=== PATIENT | female | born 1955 | race African-American/Black ===

== ENCOUNTER → 2017-04-11 | Outpatient (CLI) | payer MEDICAID ==
--- NOTE | 2017-04-11 11:04 | NOWCEV ---
[facility] EVALUATION AND LETTER OF JUSTIFICATION Patient Name: JEANNETTE SHELDON Physician: Rukhsana Woodruff MD Eval Date: 04/11/17 Therapist: Nenita Sanders PT,MSPT Date of : 1955 MR#: [id number] Contact: Jeannette Sheldon Subscriber: JEANNETTE SHELDON Primary Ins: MEDICAID HEALTH FIRST REGULATORY COORDINATOR Subscriber #: [id number] EVALUATION FINDINGS Medical history - Jeannette is a 62y/o female with longstanding h/o COPD, balance disturbance, sleep apnea, as well as LBP and R knee pain. She is primarily housebound, as her ability to access the community is limited by her poor endurance as well as pain and balance deficits. She was referred to this clinic by her doctor to have recommendations made for the most appropriate power mobility device to provide Jeannette with safe and consistent access to the community. Functional Mobility - Jeannette is able to ambulate household distances independently, but her gait is very unsteady and is characterized by a significant R trendelenburg, narrow CARLY, no heel strike or push off, and flexed posture. Walking a 40' distance between rooms in the clinic Jeannette caught her toe multiple times and had several near falls. Following this short walk she was SOB and reported dizziness, requiring a seated rest prior to continuing with assessment. Jeannette has had falls within her home, most recently she reports catching her toes on the carpet. She completed the TUG in 20sec indicating an increased fall risk. Jeannette does not ambulate community distances. She is not able to negotiate unlevel/ community surfaces without a significant increased risk of fall. She does report intermittently using a sc, but does not use a walker because a 4-wheel walker is too difficult/dangerous for Jeannette to safely control due to her poor balance, and would place her at significant risk for fall. She does not have the strength or endurance to propel a front wheel walker at a community level. Jeannette can safely perform stand step transfers with UE support from chair. She can independently perform supine to/from sit transitions. Motor involvement - Jeannette is weaker on the R side than her L side. MMT is as follows: DF:4-/5 R, 4/5 L, knee extension: 4-/5 R, 4+/5 L, hip flexion: 3+/5 B, hip abduction: 2/5 R, 3/5 L, shoulder flexion and abduction: 4/5 B. She has significantly impaired balance reactions with small ineffective stepping reactions and minimal response at her hips and ankles in response to LOB or challenges. Posture - Jeannette sits with a relatively level pelvis and a lumbar lordosis. Skin Sensation - Jeannette has numbness and tingling in her toes on B feet, and mild diminished sensation on the plantar surfaces of her feet. She does not have any skin breakdown and is continent of bowel and bladder. Endurance - Jeannette has very poor endurance due to her COPD. She reports that she used to utilize supplemental O2 throughout the day, but she has since lost weight so only utilizes supplemental O2 at night. She is unable to ambulate any community distances due to significant SOB and pain in her back. She demonstrated SOB when ambulating 20-40' distances within the clinic requiring a seated break to recover between tasks. She reports that she can maximally ambulate ~100' on level surfaces, but requires about 5min seated to recover. ADLs - Jeannette is I with ADLs such as dressing, bathing, and basic meal prep within the home. Cognitive/Social - Jeannette lives alone in a single level apartment with a level entry. She utilizes public transportation to access medical appointments, as well as the grocery store which is half a mile from her home. She reports that she has been primarily home bound for the past 10 years, due to her poor endurance from her COPD, and limited ability to ambulate on variable terrain due to balance deficits and pain. Her goal is to be able to independently shop and attend appointments without exacerbating her COPD, pain, or placing herself at risk for fall. Current wheelchair - Jeannette does not own any power or manual wheelchairs or scooters. MEDICAL and FUNCTIONAL NEED/OBJECTIVES * To procure a power scooter to provide Jeannette with safe, consistent, and independent access to the community. EQUIPMENT RECOMMENDATIONS AND JUSTIFICATIONS The following recommendations are believed to be the most cost effective way to meet the patients medical and functional needs. * Easel Learn 4-wheel power scooter: Needed to provide Jeannette with safe and consistent access to the community without exacerbation of her COPD, pain, or placing her at risk for fall. Jeannette is not able to ambulate community distances , even with an AD such as a cane or walker due to her limited endurance from her COPD, as she becomes SOB and requires a seated break after ambulating 40'. Additionally she is not able to ambulate over unlevel/community surfaces even with a walker without placing herself at increased risk for fall, especially when carrying groceries. Jeannette cannot utilize a MWC, even a light or ultra light weight model, as self propulsion with her UEs would exacerbate her COPD and she would not be able to self propel community distances, even with UEs and LEs. Additionally, Jeannette does not have the strength / endurance to be able to self propel even an ultra light weight MWC over unlevel surfaces such as up/ down curb cuts, or ramps, nor would she be able to propel a MWC quickly enough to cross a street safely. A power scooter will provide Jeannette with the ability to independently grocery shop, attend medical appointments, and access the community without exacerbation of her COPD, increasing her pain, or placing her at risk for fall. A 4 wheel model is necessary as Jeannette will be using her scooter only for community mobility, this will provide her with greater ability to navigate unlevel terrain. Jeannette will be able to maintain her UEs on a tiller to safely drive her power scooter. Jeannette will be able to safely and independently transfer on/off a scooter platform. These recommendations are based on the likelihood that Jeannette will require the use of a power scooter for all community mobility for the rest of her life. She is able and has not expressed any unwillingness to use the equipment. If you have any questions or concerns regarding the stated recommendations, please feel free to contact the therapist at . Thank you for your cooperation in obtaining the necessary equipment for this patient. MANDY Johnson
== END ==
PROVIDERS: ATTEND Family Medicine
DX: R26.81 Unsteadiness on feet (principal); R27.8 Other lack of coordination
CPT/HCPCS: 97161-GP

== ENCOUNTER 2018-03-29 13:16 | Observation (INO) | payer MEDICAID ==
--- NOTE | 2018-03-29 13:28 | EDPHY ---
H & P Time Seen by Provider: 03/29/18 13:19 HPI/ROS: CHIEF COMPLAINT: Right foot pain and swelling HISTORY OF PRESENT ILLNESS: The patient is a 63-year-old female with a history of asthma and hypertension who comes to the emergency department stating that she dropped the edge of a table on the top of her right foot 1 week ago. She had a small abrasion to the dorsal aspect of her foot. She has had foot pain ever since and now it is becoming swollen. She is a difficult historian. No fevers. She denies diabetes or immunocompromise. Severity: Severe Modifying factors: Worsens with movement or palpation REVIEW OF SYSTEMS: Constitutional: denies: chills, fever, recent illness, recent injury EENTM: denies: blurred vision, double vision, nose congestion Respiratory: denies: cough, shortness of breath Cardiac: denies: chest pain, irregular heart rate, lightheadedness, palpitations Gastrointestinal/Abdominal: denies: abdominal pain, diarrhea, nausea, vomiting, blood streaked stools Genitourinary: denies: dysuria, frequency, hematuria, pain Musculoskeletal: See HPI Skin: denies: See HPI Neurological: denies: headache, numbness, paresthesia, tingling, dizziness, weakness Hematologic/Lymphatic: denies: blood clots, easy bleeding, easy bruising Immunologic/allergic: denies: HIV/AIDS, transplant 10 systems reviewed and negative except as noted EXAM: GENERAL: Well-appearing, well-nourished and in no acute distress. HEAD: Atraumatic, normocephalic. EYES: Pupils equal round and reactive to light, extraocular movements intact, sclera anicteric, conjunctiva are normal. ENT: TMs normal, nares patent, oropharynx clear without exudates. Moist mucous membranes. NECK: Normal range of motion, supple without lymphadenopathy or JVD. LUNGS: Breath sounds clear to auscultation bilaterally and equal. No wheezes rales or rhonchi. HEART: Regular rate and rhythm without murmurs, rubs or gallops. ABDOMEN: Soft, nontender, normoactive bowel sounds. No guarding, no rebound. No masses appreciated. BACK: No CVA tenderness, no spinal tenderness, step-offs or deformities EXTREMITIES: Right foot significantly edematous and slightly warm to palpation. Central abrasions seems to be healing well. No obvious purulence. Pain with palpation of her foot bones. No ankle pain or tenderness. Normal range of motion, no pitting or edema. No clubbing or cyanosis. NEUROLOGICAL: Cranial nerves II through XII grossly intact. Normal speech, normal gait. 5/5 strength, normal movement in all extremities, normal sensation , normal reflexes PSYCH: Normal mood, normal affect. SKIN: See above Source: Patient Exam Limitations: No limitations - Medical/Surgical History Hx Asthma: No Hx Chronic Respiratory Disease: No Hx Diabetes: No Hx Cardiac Disease: No Hx Renal Disease: No Hx Cirrhosis: No Hx Alcoholism: No Hx HIV/AIDS: No Hx Splenectomy or Spleen Trauma: No Other PMH: HTN, asthma - Family History Significant Family History: No pertinent family hx - Social History Smoking Status: Current every day smoker Alcohol Use: None Drug Use: None Constitutional: Initial Vital Signs Temperature (C) 36.6 C 03/29/18 14:24 Heart Rate 83 03/29/18 14:24 Respiratory Rate 16 03/29/18 14:24 Blood Pressure 127/77 H 03/29/18 14:24 O2 Sat (%) 92 03/29/18 14:24 O2 Delivery Mode Room Air Allergies/Adverse Reactions: ENVIRONMENTAL Allergy (Mild, Uncoded 10/09/12 11:54) Other-Enter Comments Home Medications: Medication Instructions Recorded Aspirin [Aspirin 81mg (*)] 81 mg PO DAILY 10/04/12 Cyclobenzaprine [Flexeril 10 MG 10 mg PO TID PRN 10/04/12 (*)] Fluticasone/Salmeterol [Advair 1 each IH DAILY 10/04/12 250-50 Diskus] clonAZEPAM [Clonazepam] 2 mg PO TID PRN 10/04/12 Ipratropium [Atrovent Hfa (*)] 2 puffs IH DAILY 08/06/15 Albuterol [Proventil Inhaler HFA 1 - 2 puffs IH Q4H PRN 03/29/18 (*)] amLODIPine BESYLATE [Norvasc 10 mg 10 mg PO DAILY 03/29/18 (*)] Acetaminophen [Tylenol 325mg (*)] 650 mg PO Q4HRS PRN tab 03/30/18 Doxycycline Hyclate [Vibramycin 100 mg PO BID #10 cap 03/30/18 100 MG (*)] Medical Decision Making - Diagnostics Imaging: Discussed imaging studies w/ score caller Radiologist ED Course/Re-evaluation: We discussed the patient's x-rays. No sign of fracture. I suspect that she has cellulitis from this wound at the bridge of her foot. I will obtain lab work and start antibiotics and recommended admission. She agrees with this plan. 2:45 p.m. I discussed the case with Dr. Watson who will admit to the medical service. Differential Diagnosis: Partial list of the Differential diagnosis considered include but were not limited to; fracture, cellulitis, abscess and although unlikely based on the history and physical exam, I also considered peripheral neuropathy, CHF. - Data Points Laboratory Results: Laboratory Results 03/29/18 14:40 03/29/18 14:40 Medications Given: Discontinued Medications Amlodipine Besylate (Norvasc) 10 mg PO DAILY MAX Stop: 09/26/18 08:59 Last Admin: 03/30/18 08:36 Dose: 10 mg Aspirin (Aspirin) 81 mg PO DAILY MAX Stop: 09/26/18 08:59 Last Admin: 03/30/18 08:36 Dose: 81 mg Cyclobenzaprine HCl (Flexeril) 10 mg PO TID PRN PRN Reason: Muscle Spasms Stop: 09/25/18 16:33 Last Admin: 03/30/18 08:39 Dose: 10 mg Vancomycin/Sodium Chloride (Vancomycin 1 Gm (Premix)) 250 mls @ 250 mls/hr IV EDNOW ONE PRN Reason: Protocol Stop: 03/29/18 15:21 Last Admin: 03/29/18 15:12 Dose: 250 mls Sodium Chloride (Ns) 1,000 mls @ 100 mls/hr IV CONT MAX Stop: 09/25/18 15:44 Last Admin: 03/30/18 06:08 Dose: 1,000 mls Cefazolin Sodium/Dextrose (Ancef 2 Gm) 100 mls @ 200 mls/hr IV Q8HRS MAX PRN Reason: Protocol Stop: 04/28/18 21:59 Last Admin: 03/30/18 06:07 Dose: 100 mls Ipratropium Porter (Atrovent Hfa) 2 puffs IH DAILY MAX Stop: 09/26/18 08:59 Last Admin: 03/30/18 10:03 Dose: Not Given Fluticasone/Salmeterol (Advair) 1 puffs IH DAILY MAX Stop: 09/26/18 08:59 Last Admin: 03/30/18 09:49 Dose: 1 inh Departure - Departure Disposition: [facility] Inpatient Acute Clinical Impression: Cellulitis Qualifiers: Site of cellulitis: extremity Site of cellulitis of extremity: lower extremity Laterality: unspecified laterality Qualified Code(s): L03.119 - Cellulitis of unspecified part of limb Condition: Good
[2018-03-29] MEDS ORDERED: VANCOMYCIN HCL/NORMAL SALINE 250 ML IV ONE (14:22)
[2018-03-29 14:59] LABS: PLATELET COUNT 362 10^3/uL (150-400)
[2018-03-29 15:22] LABS: INR 0.96 (0.83-1.16)
[2018-03-29] MEDS ORDERED: ONDANSETRON 4 MG/2 ML VIAL IVP PRN (15:43)
[2018-03-29] MEDS ORDERED: PROMETHAZINE HCL 25 MG/ML INJ IVP PRN (15:43)
[2018-03-29] MEDS ORDERED: oxyCODONE IR 5 MG TAB PO PRN (15:43)
[2018-03-29] MEDS ORDERED: ACETAMINOPHEN 325 MG TAB PO PRN (15:43)
[2018-03-29] MEDS ORDERED: ONDANSETRON DISINTEGRATING 4 MG TAB PO PRN (15:43)
[2018-03-29] MEDS ORDERED: HYDROCODONE/APAP 5/325 TAB PO PRN (15:43)
--- NOTE | 2018-03-29 15:55 | PDGENHP ---
History and Physical - Chief Complaint foot swelling and pain - History of Present Illness 63 yo F with PMH of HTN and asthma presenting with pain and swelling in her right foot. She notes that she dropped a table top on the foot about a week ago , and it had originally seemed to be improving but over the last couple of days was noted to be hot and swollen. She has had subjective fever and chills. She has not appreciated any streaking erythema in her skin however she is and is difficult to determine erythema over the area involved as well. She has never had similar sxs in the past. She has no other current complaints. History Information - Allergies/Home Medication List Allergies/Adverse Reactions: ENVIRONMENTAL Allergy (Mild, Uncoded 10/09/12 11:54) Other-Enter Comments Home Medications: Aspirin [Aspirin 81mg (*)] 81 mg PO DAILY 10/04/12 [Last Taken 03/29/18] Cyclobenzaprine [Flexeril 10 MG (*)] 10 mg PO TID PRN 10/04/12 [Last Taken 03/29] Fluticasone/Salmeterol [Advair 250-50 Diskus] 1 each IH DAILY 10/04/12 [Last Taken 03/28/18] clonAZEPAM [Clonazepam] 2 mg PO TID PRN 10/04/12 [Last Taken 03/25/18] Ipratropium [Atrovent Hfa (*)] 2 puffs IH DAILY 08/06/15 [Last Taken 03/28/18] Albuterol [Proventil Inhaler HFA (*)] 1 - 2 puffs IH Q4H PRN 03/29/18 [Last Taken Unknown] amLODIPine BESYLATE [Norvasc 10 mg (*)] 10 mg PO DAILY 03/29/18 [Last Taken ] I have personally reviewed and updated: family history, medical history, social history, surgical history - Past Medical History asthma, hypertension - Surgical History Reports: hysterectomy Additional surgical history: C section - Family History Positive for: diabetes type II, hypertension, stroke - Social History Smoking Status: Current every day smoker Alcohol Use: None Drug Use: None Additional social history: Single, patient has 1 child and 2 grandchildren aged 3 and 5 Review of Systems Review of Systems: ROS: 10pt was reviewed & negative except for what was stated in HPI & below Physical Exam Physical Exam: Temp Pulse Resp BP Pulse Ox 36.5 C 86 20 122/68 H 89 L 03/29/18 15:31 03/29/18 15:31 03/29/18 15:31 03/29/18 15:31 03/29/18 15:31 Constitutional: no apparent distress, appears nourished Eyes: PERRL Ears, Nose, Mouth, Throat: moist mucous membranes, hearing normal Cardiovascular: regular rate and rhythym, no murmur, rub, or gallop, edema Respiratory: no respiratory distress, no rales or rhonchi, clear to auscultation Gastrointestinal: normoactive bowel sounds, soft, non-tender abdomen Genitourinary: no bladder tenderness Skin: warm, normal color Musculoskeletal: full muscle strength, no muscle tenderness Neurologic: AAOx3 Psychiatric: interacting appropriately, not anxious, not encephalopathic Lab Data & Imaging Review 03/29/18 14:40 03/29/18 14:40 WBC 6.92 10^3/uL (3.80-9.50) 03/29/18 14:40 RBC 4.24 10^6/uL (4.18-5.33) 03/29/18 14:40 Hgb 13.2 g/dL (12.6-16.3) 03/29/18 14:40 Hct 40.4 % (38.0-47.0) 03/29/18 14:40 MCV 95.3 fL (81.5-99.8) 03/29/18 14:40 MCH 31.1 pg (27.9-34.1) 03/29/18 14:40 MCHC 32.7 g/dL (32.4-36.7) 03/29/18 14:40 RDW 15.6 % (11.5-15.2) H 03/29/18 14:40 Plt Count 362 10^3/uL (150-400) 03/29/18 14:40 MPV 9.0 fL (8.7-11.7) 03/29/18 14:40 Neut % (Auto) 57.9 % (39.3-74.2) 03/29/18 14:40 Lymph % (Auto) 31.2 % (15.0-45.0) 03/29/18 14:40 Divide % (Auto) 4.5 % (4.5-13.0) 03/29/18 14:40 Eos % (Auto) 5.3 % (0.6-7.6) 03/29/18 14:40 Baso % (Auto) 0.7 % (0.3-1.7) 03/29/18 14:40 Nucleat RBC Rel Count 0.0 % (0.0-0.2) 03/29/18 14:40 Absolute Neuts (auto) 4.00 10^3/uL (1.70-6.50) 03/29/18 14:40 Absolute Lymphs (auto) 2.16 10^3/uL (1.00-3.00) 03/29/18 14:40 Absolute Monos (auto) 0.31 10^3/uL (0.30-0.80) 03/29/18 14:40 Absolute Eos (auto) 0.37 10^3/uL (0.03-0.40) 03/29/18 14:40 Absolute Basos (auto) 0.05 10^3/uL (0.02-0.10) 03/29/18 14:40 Absolute Nucleated RBC 0.00 10^3/uL (0-0.01) 03/29/18 14:40 Immature Gran % 0.4 % (0.0-1.1) 03/29/18 14:40 Immature Gran # 0.03 10^3/uL (0.00-0.10) 03/29/18 14:40 PT 13.0 SEC (12.0-15.0) 03/29/18 14:40 INR 0.96 (0.83-1.16) 03/29/18 14:40 APTT 26.1 SEC (23.0-38.0) 03/29/18 14:40 VBG Lactic Acid 1.7 mmol/L (0.7-2.1) 03/29/18 14:47 Sodium 141 mEq/L (135-145) 03/29/18 14:40 Potassium 3.7 mEq/L (3.3-5.0) 03/29/18 14:40 Chloride 108 mEq/L (97-110) 03/29/18 14:40 Carbon Dioxide 27 mEq/l (22-31) 03/29/18 14:40 Anion Gap 6 mEq/L (8-16) L 03/29/18 14:40 BUN 6 mg/dL (7-23) L 03/29/18 14:40 Creatinine 0.8 mg/dL (0.6-1.0) 03/29/18 14:40 Estimated GFR > 60 03/29/18 14:40 Glucose 114 mg/dL (70-100) H 03/29/18 14:40 Calcium 9.0 mg/dL (8.5-10.4) 03/29/18 14:40 Total Bilirubin 0.5 mg/dL (0.1-1.4) 03/29/18 14:40 Visualized and Interpreted imaging results: Yes Interpretation: right foot xray: soft tissue swelling, no fracture Assessment & Plan Assessment: Cellulitis (Acute) 63 yo F with PMH of HTN presenting with right lower extremity cellulitis # RLE cellulitis: with area of abrasion on top of foot following trauma a week ago the likely portal of infection, no s/s of sepsis or systemic toxicity currently though report of fever at home, non purulent. Has received vanco in ER and will transition to cefazolin for now, cultures pending. # asthma: without e/o acute exacerbation, will continue home medications at this time, suspect she has dx of COPD given smoking history and recommend OP PFTs # HTN: will continue norvasc, BP currently well controlled # anxiety: on chronic benzodiazepines, will continue # observation status Patient new to my care. Old records reviewed and summarized as above. Care plan reviewed with ER doctor as above.
[2018-03-29] MEDS: NS 1,000 ML IV SCH ×2 (16:16→21:05)
[2018-03-29] MEDS ORDERED: ALBUTEROL 60 PUFFS/8 GM MDI IH PRN (16:34)
[2018-03-29] MEDS ORDERED: CYCLOBENZAPRINE 10 MG TAB PO PRN (16:34)
[2018-03-29] MEDS ORDERED: clonazePAM 1 MG TAB PO PRN (16:45)
[2018-03-29] MEDS: ceFAZolin 2 GM/DEXTROSE 100 ML IV SCH (21:05)
[2018-03-30] MEDS: ceFAZolin 2 GM/DEXTROSE 100 ML IV SCH (06:07)
[2018-03-30] MEDS: NS 1,000 ML IV SCH (06:08)
[2018-03-30 07:52] VITALS: BP 126/76
[2018-03-30] MEDS ORDERED: FLUTICASONE/SALMETER 250/50MCG DISKUS IH SCH (09:00)
[2018-03-30] MEDS ORDERED: IPRATROPIUM HFA INHALER IH SCH (09:00)
[2018-03-30] MEDS ORDERED: ASPIRIN 81 MG CHEWABLE TAB PO SCH (09:00)
--- NOTE | 2018-03-30 12:14 | ASDISCHSUM ---
Discharge Information Plan Status:Home with No Needs Medically Cleared to Leave: Discharge Date: CM D/C Disposition:Home, Routine, Self-Care ADT D/C Disposition:Home, Routine, Self-Care Projected Discharge Date: Transportation at D/C:Family Discharge Delay Reason: Follow-Up Date: Discharge Slot: Final Diagnosis: Placement Information Patient Contact Information Contact Name:JORDAN Relationship:Mother Address:[address] [place] [address] Work Phone: City:[place] [facility] Phone: State/Zip Code:[place] Email: Financial Information Financial Class:Medicaid Primary Plan Desc:MEDICAID HEALTH FIRST [employer]OGRAPHIC PLATE [employer]ER Primary Plan Number:[id number] Secondary Plan Desc: Secondary Plan Number: Assessment Information LACE LACE Length of stay for Answers: Less than 1 day current admission Acuity / Level of Answers: No Care: Did the patient have an inpatient admission? Comorbidities - select Answers: Other Notes: HTN, asthma all that apply # of Emergency department Answers: 1-2 visits in the last 6 months Score: 2 Date Signed: 03/30/2018 11:59 AM Electronically Signed By:Delmy Christian Intervention Information
--- NOTE | 2018-03-30 13:27 | GDS ---
DISCHARGE DIAGNOSES: 1. Right foot cellulitis. 2. History of asthma. 3. History of hypertension. PHYSICAL EXAM: GENERAL: The patient is alert. VITAL SIGNS: Afebrile, 36.8, pulse is 85, respirato ry rate 16, blood pressure is 126/76. She is saturating 95% on room air. I have seen and evaluated the patient on the day of discharge. HOSPITAL COURSE: The patient is a 63-year-old female who presented to the emergency room with compla ints of right foot swelling with pain. She was evaluated and diagnosed with: 1. Right foot cellulitis. During this hospitalization, she received a dose of IV vancomycin in the emergency room. She was transitioned to the cefazolin, and now has been transitioned to oral doxycyc line for the outpatient setting. Her foot is improving. Swelling is decreased and she has been enco uraged to elevate at home. She has been evaluated by Physical Therapy and Occupational Therapy yudith g this hospitalization, and they both have felt that she is safe to be discharged home independently. 2. History of asthma. This is without acute exacerbation, and stable. 3. History of hypertension. Her home blood pressure medications have been continued. DISPOSITION: She will be discharged home independently. FOLLOWUP: Followup will be with her primary care physician, Dr. Kacy Milian. DISCHARGE MEDICATIONS: Please refer to EMR form. I have provided the patient a prescription for dox ycycline. /[id number]/MODL
== END 2018-03-30 12:20 | disposition home or self-care (01) ==
LOC: EDUNIT# → F3E 15:22
PROVIDERS: ADMIT Internal Medicine; ATTEND Internal Medicine
DX: L03.115 Cellulitis of right lower limb (principal); J45.909 Unspecified asthma, uncomplicated; I10 Essential (primary) hypertension
CPT/HCPCS: 73630; 96365; 96375; 96376; 97116; 97161; 97166; 97535; 99285; G0378; J0690; J3370